=== PATIENT | female | born 1940 | race Hispanic/Latino ===

== ENCOUNTER 2016-06-13 15:07 | Emergency (ER) | payer OTHER ==
[~2016-06-13] VITALS: Ht 152.4 cm; Wt 81.8 kg
[~2016-06-13 15:07] MED LIST: AMLODIPINE2.5 MG PO; HYDROXYZINE HCL25 M1 PO; LISINOPRIL2.5 MG PO; LOVASTATIN10 MG PO; NAMENDA10 MG PO; PENICILLN250 MG/5 M PO; SERTRALINE25 MG PO; TRAZODONE50 MG PO
[2016-06-13] MEDS ORDERED: EXELON4.6 MG/24 (15:31)
[2016-06-13] MEDS ORDERED: AMOX/K CLAV875 M1 PO (15:32)
[2016-06-13] MEDS ORDERED: TESSALON PER100 MG PO (15:33)
[2016-06-13 15:55] LABS: URINE BILIRUBIN - DIPSTICK NEGATIVE (NEGATIVE); URINE BLOOD DIPSTICK NEGATIVE (NEGATIVE); URINE CLARITY CLEAR; URINE COLOR YELLOW; URINE GLUCOSE - DIPSTICK NEGATIVE (NEGATIVE); URINE KETONE NEGATIVE (NEGATIVE); URINE LEUK ESTERASE NEGATIVE (NEGATIVE); URINE NITRITE - DIPSTICK NEGATIVE (Negative); URINE PH 5.5 (4.5-8.0); URINE PROTEIN - DIPSTICK NEGATIVE (NEG-TRACE); URINE UROBILINOGEN - DIPSTICK 0.2 E.U./dL (0.2)
[2016-06-13 15:55] LABS: HEMATOCRIT 39.6 % (37.0-47.0); HEMOGLOBIN 12.9 g/dl (12.0-16.0); IMMATURE GRANULOCYTES 0.1 % (0.0-1.0); MEAN CELL VOLUME 90.4 fL CALC (80.0-100.0); MEAN CORPUSCULAR HGB 29.5 pG CALC (26.0-32.0); MEAN CORPUSCULAR HGB CONC 32.6 g/L CALC (32.0-36.0); NEUT# 4.16 thou/uL (2.00-7.15); RED BLOOD COUNT 4.38 mill/uL (4.20-5.60); RED CELL DISTRI WIDTH 13.2 % (11.5-15.5)
[2016-06-13 16:24] LABS: ALBUMIN 4.5 g/dL (3.2-5.0); ALKALINE PHOSPHATASE 59 u/l (38-126); ANION GAP 18 (6-22 (CALC)); BILIRUBIN, TOTAL 0.5 mg/dL (0.0-1.4); BUN 23 mg/dL (8-23); BUN/CREATININE RATIO 24 (12-20 (CALC)); CALCIUM 9.9 mg/dL (8.4-10.2); CARBON DIOXIDE 26 mmol/l (22-30); CHLORIDE 103 mmol/l (95-108); GFR 54 ML/MIN (>=60 (CALC)); GFR FOR AFR.AMER. > 60 ML/MIN (>=60 (CALC)); GLUCOSE 121 mg/dL (82-115); POTASSIUM 4.6 mmol/l (3.5-5.1); SGOT/AST 35 u/l (9-36); SGPT/ALT 47 u/l (11-66); SODIUM 143 mmol/l (137-146); TOTAL PROTEIN 8.1 g/dL (6.3-8.2)
[2016-06-13 16:36] LABS: MYOGLOBIN 25 ng/mL (0 - 62)
[2016-06-13 22:05] VITALS: BP 130/67
== END 2016-06-13 22:08 | disposition short-term general hospital (02) | DRG 948 ==
LOC: ED 15:07
PROVIDERS: Emergency Medicine
DX: R41.82 Altered mental status, unspecified (principal); I10 Essential (primary) hypertension; R27.0 Ataxia, unspecified; E78.00 Pure hypercholesterolemia, unspecified; F32.9 Major depressive disorder, single episode, unspecified

== ENCOUNTER 2017-06-27 09:12 | Emergency (ER) | payer MEDICARE, OTHER ==
[~2017-06-27] VITALS: Ht 152.4 cm; Wt 68.0 kg
[~2017-06-27 09:12] MED LIST changes: +AMOX/K CLAV875 M1 PO; +EXELON4.6 MG/24; +TESSALON PER100 MG PO
[2017-06-27 10:53] LABS: HEMATOCRIT 42.5 % (37.0-47.0); IMMATURE GRANULOCYTES 0.4 % (0.0-1.0); MEAN CELL VOLUME 89.9 fL CALC (80.0-100.0); MEAN CORPUSCULAR HGB 29.6 pG CALC (26.0-32.0); MEAN CORPUSCULAR HGB CONC 32.9 g/L CALC (32.0-36.0); NEUT# 5.25 thou/uL (2.00-7.15); RED BLOOD COUNT 4.73 mill/uL (4.20-5.60); RED CELL DISTRI WIDTH 12.9 % (11.5-15.5)
[2017-06-27 10:53] LABS: URINE BILIRUBIN - DIPSTICK NEGATIVE (NEGATIVE); URINE BLOOD DIPSTICK NEGATIVE (NEGATIVE); URINE COLOR YELLOW; URINE GLUCOSE - DIPSTICK NEGATIVE (NEGATIVE); URINE KETONE NEGATIVE (NEGATIVE); URINE LEUK ESTERASE NEGATIVE (NEGATIVE); URINE NITRITE - DIPSTICK NEGATIVE (Negative); URINE PROTEIN - DIPSTICK TRACE mg/dL (NEG-TRACE); URINE UROBILINOGEN - DIPSTICK 0.2 E.U./dL (0.2)
[2017-06-27 10:56] LABS: URINE CLARITY CLEAR
[2017-06-27 11:05] LABS: ALBUMIN 4.1 g/dL (3.2-5.0); ALKALINE PHOSPHATASE 69 u/l (38-126); ANION GAP 17 (6-22 (CALC)); BILIRUBIN, TOTAL 0.6 mg/dL (0.0-1.4); BUN 15 mg/dL (8-23); BUN/CREATININE RATIO 21 (12-20 (CALC)); CARBON DIOXIDE 29 mmol/l (22-30); CHLORIDE 101 mmol/l (95-108); CREATININE 0.7 mg/dL (0.5-1.0); GFR > 60 ML/MIN (>=60 (CALC)); GFR FOR AFR.AMER. > 60 ML/MIN (>=60 (CALC)); POTASSIUM 3.9 mmol/l (3.5-5.1); SGOT/AST 22 u/l (9-36); SGPT/ALT 38 u/l (11-66); SODIUM 143 mmol/l (137-146); TOTAL PROTEIN 7.4 g/dL (6.3-8.2)
[2017-06-27] MEDS ORDERED: ZOFRAN4 MG/TAB PO (11:10)
[2017-06-27 11:20] VITALS: BP 141/75
== END 2017-06-27 11:20 | disposition home or self-care (01) ==
LOC: ED 09:12
PROVIDERS: Emergency Medicine
DX: R11.2 Nausea with vomiting, unspecified (principal); I10 Essential (primary) hypertension; G30.9 Alzheimer's disease, unspecified; F02.80 Dementia in other diseases classified elsewhere, unspecified severity, without behavioral disturbance, psychotic disturbance, mood disturbance, and anxiety

== ENCOUNTER 2021-03-22 18:33 | Observation (INO) | payer MEDICARE ==
[~2021-03-22] VITALS: Ht 152.4 cm; Wt 37.0 kg
[~2021-03-22 18:33] MED LIST changes: -EXELON4.6 MG/24; +EXELON9.5 MG/24 TOP; +ZOFRAN4 MG/TAB PO
--- NOTE | 2021-03-22 18:39 | NUR ---
PATIENT RESTING ON EMS STRETCHER AWAITING ROOM ASSIGNMENT. MD NOTIFIED OF PATIENT STATUS
--- NOTE | 2021-03-22 19:00 | NUR ---
CARE ASSUMED, PT RESTING ON STRETCHER, NON VERBAL (NOT NEW PER FAMILY) PT REPOSITIONS SELF MINIMALLY FOR COMFORT, WEARING ADULT BRIEF FOR ASSUMED INCONTINENCE, PER FAMILY PT HAD COVID VACCINE YESTERDAY AND SINCE HAS BEEN WEAKER, WITH NO APPETITE AND POOR PO INTAKE BOTH LIQUID AND FOOD.
[2021-03-22 19:22] LABS: HEMATOCRIT 40.3 % (37.0-47.0); HEMOGLOBIN 13.2 g/dl (12.0-16.0); IMMATURE GRANULOCYTES 0.2 % (0.0-5.0); MEAN CORPUSCULAR HGB 31.3 pG CALC (26.0-32.0); MEAN CORPUSCULAR HGB CONC 32.8 g/dL CAL (32.0-36.0); NEUT# 7.91 thou/uL (2.00-7.15); RED BLOOD COUNT 4.22 mill/uL (4.20-5.60)
[2021-03-22 19:25] LABS: MEAN CELL VOLUME 95.5 fL CALC (80.0-100.0)
[2021-03-22 19:41] LABS: ALBUMIN 3.9 g/dL (3.2-5.0); ALKALINE PHOSPHATASE 93 u/l (38-126); ANION GAP 13 (6-22 (CALC)); BUN 17 mg/dL (8-23); BUN/CREATININE RATIO 25 (12-20 (CALC)); CARBON DIOXIDE 26 mmol/l (22-30); CHLORIDE 107 mmol/l (95-108); CREATININE 0.7 mg/dL (0.5-1.0); GFR > 60 ML/MIN (>=60 (CALC)); GFR FOR AFR.AMER. > 60 ML/MIN (>=60 (CALC)); POTASSIUM 4.1 mmol/l (3.5-5.1); SGOT/AST 24 u/l (9-36); SODIUM 141 mmol/l (137-146); TOTAL PROTEIN 7.4 g/dL (6.3-8.2)
[2021-03-22 19:42] LABS: BILIRUBIN, TOTAL 0.9 mg/dL (0.0-1.4)
--- NOTE | 2021-03-22 20:15 | NUR ---
PT RESTING WITH EYES CLOSED, NO NEW COMPLAINTS OFFERED, NO S/S OF DISTRESS OR DISCOMFORT. CALL MOSLEY WITHIN REACH
--- NOTE | 2021-03-22 21:31 | NUR ---
PT RESTING NO NEW COMPLAINTS, STILL IN NEED OF URINE SPECIMEN,
--- NOTE | 2021-03-22 22:15 | NUR ---
PT RESTING REMAINS AWARE OF NEED FOR URINE. NO S/S OF DISTRESS OR DISCOMFORT NOTED.
--- NOTE | 2021-03-22 23:33 | NUR ---
17F ROMERO INSERTED USING STERILE TECHNIQUE WITH IMMEDIATE RETURN OF CLEAR YELLOW URINE, SPECIMEN OBTAINED AND SECURITY DEVICE APPLIED TO LEFT UPPER THIGH.
[2021-03-22 23:49] LABS: URINE BILIRUBIN - DIPSTICK NEGATIVE (NEGATIVE); URINE BLOOD DIPSTICK NEGATIVE (NEGATIVE); URINE COLOR YELLOW; URINE GLUCOSE - DIPSTICK NEGATIVE (NEGATIVE); URINE KETONE NEGATIVE (NEGATIVE); URINE LEUK ESTERASE NEGATIVE (NEGATIVE); URINE PROTEIN - DIPSTICK NEGATIVE (NEG-TRACE); URINE SPECIFIC GRAVITY 1.025; URINE UROBILINOGEN - DIPSTICK 0.2 E.U./dL (0.2)
[2021-03-22 23:57] LABS: URINE NITRITE - DIPSTICK NEGATIVE (Negative)
[2021-03-23] MEDS ORDERED: LOSARTAN POTASS50 MG PO (00:22)
[2021-03-23] MEDS ORDERED: MEMANTINE HYDRO10 MG PO (00:23)
[2021-03-23] MEDS ORDERED: RISPERDAL PO (00:24)
--- NOTE | 2021-03-23 01:15 | NUR ---
PT RESTING FAMILY AWARE OF POTENTIAL ADMISSION, NO CHANGES IN ASSESSMENT RESTING WITH NO S/S OF DISTRESS OR DISCOMFORT.
--- NOTE | 2021-03-23 02:30 | NUR ---
PT CONTINUES WITH MILD HYPERTENSION PRN MEDICATED PRN
--- NOTE | 2021-03-23 03:30 | NUR ---
PT AND FAMILY NOTIFIED OF PLANNED ADMISSION.
--- NOTE | 2021-03-23 05:08 | NUR ---
REPORT CALLED TO HERIBERTO ON MED SURG.
[2021-03-23 05:25] VITALS: BP 180/88
--- NOTE | 2021-03-23 05:32 | NUR ---
PT TRANSFERRED TO MED SURG VIA BED.
--- NOTE | 2021-03-23 05:34 | NUR ---
HOME MEDICATIONS SENT WITH FAMILY MEMBER THAT WAS AT BEDSIDE
[2021-03-23 06:26] VITALS: BP 169/80
--- NOTE | 2021-03-23 06:45 | NUR ---
PATIENT ADMITTED FROM ER VIA STRETCHER WITH ER STAFF IN ATTENDANCE. MAX ASSIST TO TRANSFER TO BED. PATIENT IS NON-VERBAL AND DROWSY AT THIS TIME. 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 ROMERO CATH PATENT AND DRAINING YELLOW URINE-PLACED IN THE ER. IVF NS PATENT AND INFUSING VIA LEFT WRIST SITE. BP ON ADMISSION TO THE FLOOR WAS 180/88, HR-79. TELE MONITOR IN PLACE-INITAL READING WAS SB-55 PVC'S. BP AT THIS TIME IS 169/80, HR-64. O2 VIA NASAL CANNULA IN PLACE WITH O2 SATS 100% AT THIS TIME. BED ALARM IN PLACE FOR PATIENT SAFETY. WILL CONT TO MONITOR.
[2021-03-23 08:00] VITALS: BP 174/87
--- NOTE | 2021-03-23 08:00 | NUR ---
ASSESSMENT AND VITALS ALLOWED AT THIS TIME. LUNG SOUNDS ARE CLEAR UPPER/LOWER LOBES ANTERIOR. DIMINISHED RLL AND LLL POSTERIOR. HEART SOUNDS ARE REGULAR. TELE MONITOR IN PLACE. IV 20 LW INFUSING IVF PER EMAR. 20G RAC SL FLUSHED BOTH IV NO RESISTANCE. ROMERO CATHETERE IN PLACE, DRAINING VIA GRAVITY. SKIN INTACT. SHOWING YELLOW URINE. PT IS NON VERBAL. ABLE TO TOLERATE FOOD. CAN REPOSTION IN BED. SKIN WDI. FALL/SAFETY PRECAUTION IN PLACE. CALL LIGHT WITHIN REACH
[2021-03-23 10:08] VITALS: BP 174/87
--- NOTE | 2021-03-23 12:00 | NUR ---
PT WITH FAMILY MEMBER AT BEDSIDE. NO DISTRESS NOTED. SEEMS TO BE RELAXED MORE WITH THE DAUGHTER BEING PRESENT. CALL LIGHT WITHIN REACH
--- NOTE | 2021-03-23 14:33 | NUR ---
Discharge instructions given. Patient verbalizes understanding of same. Discharged in stable condition via Wheelchair to Home with staff. All belongings sent with pt. RAC 20G REMOVED CATHETER ALL INTACT LW 20G REMOVED CATHETER INTACT
--- NOTE | 2021-03-27 13:44 | NUR ---
Pneumonia post discharge follow up call completed. Spoke to patient\molina hooper. She states the patient is doing very well. No fever, chills, or SOB. Pt resumed taking regulaar medication. No additional meds were prescribed. No follow up appt. has been scheduled to date, but daughter states she will be sure to make appt. no needs or questions voiced at this time.
== END 2021-03-23 14:35 | disposition home or self-care (01) ==
LOC: ED 18:33 → ED-I 03-23 01:43 → ED 03-23 02:19 → MS2 03-23 02:20
PROVIDERS: Family Medicine; ADMIT Hospitalist; ATTEND Hospitalist
PROC: 0T9B70Z Drainage of Bladder with Drainage Device, Via Natural or Artificial Opening (ICD-10-PCS; principal; 2021-03-23)
DX: G93.40 Encephalopathy, unspecified (principal); J44.1 Chronic obstructive pulmonary disease with (acute) exacerbation; I10 Essential (primary) hypertension; R09.02 Hypoxemia; G10 Huntington's disease; F02.80 Dementia in other diseases classified elsewhere, unspecified severity, without behavioral disturbance, psychotic disturbance, mood disturbance, and anxiety; R91.8 Other nonspecific abnormal finding of lung field; Z20.822 Contact with and (suspected) exposure to COVID-19
CPT/HCPCS: G0378; Q9967

== ENCOUNTER 2021-03-30 02:23 | Inpatient (IN) | payer MEDICARE ==
[2021-03-30] VITALS (9 sets, daily range): BP systolic 157–189; BP diastolic 79–95
[~2021-03-30] VITALS: Ht 152.4 cm; Wt 33.0 kg
[~2021-03-30 02:23] MED LIST changes: +LOSARTAN POTASS50 MG PO; +MEMANTINE HYDRO10 MG PO; +RISPERDAL PO
--- NOTE | 2021-03-30 02:56 | NUR ---
PT TO ROOM 9, PT VERY LETHARGIC, UPON UNDRESSING PT FOUND 3 EXELON PATCHES THAT WERE REMOVED AWARE
[2021-03-30 02:59] LABS: HEMATOCRIT 41.1 % (37.0-47.0); HEMOGLOBIN 13.4 g/dl (12.0-16.0); IMMATURE GRANULOCYTES 0.2 % (0.0-5.0); MEAN CELL VOLUME 94.5 fL CALC (80.0-100.0); MEAN CORPUSCULAR HGB 30.8 pG CALC (26.0-32.0); MEAN CORPUSCULAR HGB CONC 32.6 g/dL CAL (32.0-36.0); NEUT# 9.78 thou/uL (2.00-7.15); RED BLOOD COUNT 4.35 mill/uL (4.20-5.60); RED CELL DISTRI WIDTH 13.4 % (11.5-15.5)
[2021-03-30 03:00] LABS: URINE BILIRUBIN - DIPSTICK NEGATIVE (NEGATIVE); URINE BLOOD DIPSTICK NEGATIVE (NEGATIVE); URINE COLOR YELLOW; URINE GLUCOSE - DIPSTICK NEGATIVE (NEGATIVE); URINE KETONE NEGATIVE (NEGATIVE); URINE LEUK ESTERASE TRACE (NEGATIVE); URINE PH 7.5 (4.5-8.0); URINE PROTEIN - DIPSTICK NEGATIVE (NEG-TRACE); URINE SPECIFIC GRAVITY 1.015
[2021-03-30 03:02] LABS: URINE NITRITE - DIPSTICK NEGATIVE (Negative)
[2021-03-30 03:14] LABS: ALBUMIN 3.9 g/dL (3.2-5.0); ALKALINE PHOSPHATASE 85 u/l (38-126); ANION GAP 13 (6-22 (CALC)); BILIRUBIN, TOTAL 0.8 mg/dL (0.0-1.4); BUN 18 mg/dL (8-23); BUN/CREATININE RATIO 24 (12-20 (CALC)); CARBON DIOXIDE 30 mmol/l (22-30); CHLORIDE 103 mmol/l (95-108); CREATININE 0.8 mg/dL (0.5-1.0); GFR > 60 ML/MIN (>=60 (CALC)); GFR FOR AFR.AMER. > 60 ML/MIN (>=60 (CALC)); POTASSIUM 4.2 mmol/l (3.5-5.1); SODIUM 142 mmol/l (137-146); TOTAL PROTEIN 7.6 g/dL (6.3-8.2)
--- NOTE | 2021-03-30 03:15 | NUR ---
Reassessment of patient completed. No distress noted.
[2021-03-30 03:18] LABS: ACT PARTIAL THROMBO TIME 21.6 SECONDS (20.0-32.5); INTERNATIONAL NORMALIZED RATIO 0.9 RATIO (0.7-1.3); PROTHROMBIN TIME 9.9 SECONDS (9.0-12.5)
[2021-03-30 03:19] LABS: SGOT/AST 53 u/l (9-36)
--- NOTE | 2021-03-30 03:19 | NUR ---
DEEP ORAL SUCTION FOR FROTHY SPUTUM, GAG INTACT
[2021-03-30 03:23] LABS: D-DIMER 0.88 mg/L (0.19-0.60)
[2021-03-30 03:26] LABS: MYOGLOBIN 30 ng/mL (0 - 62)
[2021-03-30 03:44] LABS: TSH, 3RD GENERATION 2.21 uIU/mL (0.47 - 4.68)
--- NOTE | 2021-03-30 04:06 | NUR ---
Reassessment of patient completed. No distress noted.
--- NOTE | 2021-03-30 04:59 | NUR ---
Reassessment of patient completed. No distress noted.
--- NOTE | 2021-03-30 06:07 | NUR ---
Reassessment of patient completed. No distress noted.
--- NOTE | 2021-03-30 07:08 | NUR ---
ASSUMED CARE BY THIS RN
--- NOTE | 2021-03-30 09:05 | NUR ---
REPORT CALLED TO DOMINGUEZ FOR PLACEMENT IN ICU 8
--- NOTE | 2021-03-30 09:15 | NUR ---
PT BROUGHT TO ROOM 8 FOR ADMISSION, PT IS NON VERBAL BASELINE AND BEDREST BASELINE AT HOME. LIVES WITH FAMILY. HAS BEEN LIKE THIS FOR MANY YEARS. DAUGHTER STATES EVERY ONCE IN AWHILE CAN GET HER TO SAY YES OR NO. POLISH SPEAKING ONLY WHEN SHE DOES. LUNGS DIMINISHED, O2 AT 100% ON 3 LITRE, PT HAVING A BOWEL MOVEMENT WITH TRANSFER FROM STRETCHER TO BED. WILL OPEN EYES BUT NOTHING ELSE. ROMERO HAS LIGHT YELLOW
--- NOTE | 2021-03-30 10:39 | NUR ---
pt resting quietly on bed, has not moved or turned over since arrival. was able to crush some of her meds and mix in applesauce and spoon feed , and have a text out to doctor for any possible iv meds instead, because pt is very difficult to get to swallow
--- NOTE | 2021-03-30 13:39 | NUR ---
PT RESTING QUIETLY ON BED, SLEEPING AT THIS TIME, VITAL SIGNS REMAIN STABLE. SPOKE WITH DAUGHTER SHE STATES THAT MOTHER HAS NOT BEEN EATING SINCE YESTERDAY, BUT THAT NORMALLY SHE WILL EAT ANY THING YOU PUT IN HER MOUTH. DOES NOT HAVE TO HAVE A PUREED DIET. PT DID NOT EAT ANY OF LUNCH I TRIED TO FEED HER.
--- NOTE | 2021-03-30 16:50 | NUR ---
SPOKE WITH PTS GRANDDAUGHTER WHO STATES THAT PT STARTED BECOMING WEAK AFTER GETTING THE COVID SHOT LAST WEEK. PT DOES NOT FEED HERSELF BUT WILL EAT ALMOST ANY FOOD WHEN SHE WANTS. DOES NOT SPEAK NIGERIEN OR UNDERSTAND ANY NIGERIEN, DOES NOT TURN ON HER OWN. GRANDDAUGHTER STATES EVERY ONCE IN AWHILE WILL SHAKE HEAD YES OR NO
--- NOTE | 2021-03-30 17:41 | NUR ---
PT REFUSED TO EAT ANY FOOD, PUT FOOD UP TO HER MOUTH AND SHE WOULD KEEP HER MOUTH CLOSED AND TURNED HER HEAD AWAY. WOULD TAKE SIPS OF WATER
--- NOTE | 2021-03-30 19:42 | NUR ---
EYES OPEN DOES NOT VERBALIZE NOR RESPOND TO COMMANDS. IV SITE PATENT. ROMERO TO BSD SEDIMENTED URINE. NAD.
[2021-03-31] VITALS: BP 150/77
--- NOTE | 2021-03-31 02:44 | NUR ---
NO SIGNIFICANT CHANGE NOTED. APPEARS COMFORTABLE.
[2021-03-31 04:00] VITALS: BP 173/86
--- NOTE | 2021-03-31 04:48 | NUR ---
LABS DRAWN BY PHOTOVOLTAIC SUBCONTRACTOR. APPEARS MORE AWAKE THIS AM. NODS HEAD APPROPRIATELY.
[2021-03-31 05:08] LABS: HEMATOCRIT 38.5 % (37.0-47.0); HEMOGLOBIN 12.4 g/dl (12.0-16.0); IMMATURE GRANULOCYTES 0.4 % (0.0-5.0); MEAN CELL VOLUME 95.3 fL CALC (80.0-100.0); MEAN CORPUSCULAR HGB 30.7 pG CALC (26.0-32.0); MEAN CORPUSCULAR HGB CONC 32.2 g/dL CAL (32.0-36.0); NEUT# 5.41 thou/uL (2.00-7.15); RED BLOOD COUNT 4.04 mill/uL (4.20-5.60); RED CELL DISTRI WIDTH 13.4 % (11.5-15.5)
[2021-03-31 05:29] LABS: ALBUMIN 3.4 g/dL (3.2-5.0); ALKALINE PHOSPHATASE 80 u/l (38-126); ANION GAP 12 (6-22 (CALC)); BILIRUBIN, TOTAL 0.5 mg/dL (0.0-1.4); BUN 16 mg/dL (8-23); BUN/CREATININE RATIO 22 (12-20 (CALC)); C-REACTIVE PROTEIN 6.7 mg/dL (0-0.9); CARBON DIOXIDE 27 mmol/l (22-30); CHLORIDE 108 mmol/l (95-108); CREATININE 0.7 mg/dL (0.5-1.0); GFR > 60 ML/MIN (>=60 (CALC)); GFR FOR AFR.AMER. > 60 ML/MIN (>=60 (CALC)); POTASSIUM 3.7 mmol/l (3.5-5.1); SGOT/AST 27 u/l (9-36); SODIUM 143 mmol/l (137-146); TOTAL PROTEIN 6.5 g/dL (6.3-8.2)
--- NOTE | 2021-03-31 05:50 | NUR ---
MORE AWAKE THIS AM. NAD. SAO2 99% ROOM AIR.
[2021-03-31 08:00] VITALS: BP 153/79
--- NOTE | 2021-03-31 08:22 | NUR ---
PT SEEN AWAKE OCCASIONALLY, DOES RESPOND TO SIMPLE QUESTIONS IN [place]. PT WAS ABLE TO EAT 5-6 BITES BREAKFAST THIS MORNING. PT CONTRACTED SHE RESTS IN THE BED, LEFT LEG UP INTO ABDOMEN.
--- NOTE | 2021-03-31 11:49 | NUR ---
PT REMAINS AT REST IN THE BED BEFORE, NO CHANGE IN STATUS. SEVERAL FAMILY MEMBERS CALL TO CHECK ON HER. NAD, NO COUGH WITH SWALLOWING.
[2021-03-31 12:00] VITALS: BP 149/81
--- NOTE | 2021-03-31 13:26 | NUR ---
PT ABLE TO EAT SOME LUNCH, FED BY THE SPOONFUL. NO ACUTE DISTRESS NOTED, PT RESTS IN THE BED.
[2021-03-31 16:00] VITALS: BP 127/62
--- NOTE | 2021-03-31 16:12 | NUR ---
PT CONTINUES WITHOUT CHANGE IN STATUS. SHE IS SEEN AT REST IN THE BED ON HER RIGHT SIDE. ROMERO IN PLACE. NO DISTRESS. FAMILY HAS BROUGHT IN HER MEDS, WILL SEND TO PHARMACY IN THE MORNING.
--- NOTE | 2021-03-31 19:00 | NUR ---
REPORT RECEIVED FROM Aniya MOSES RN, CARE OF PT ASSUMED AT THIS TIME.
--- NOTE | 2021-03-31 20:06 | NUR ---
CALL RECEIVED FROM PT'S GRANDSON FOR UPDATES. UPDATES PROVIDED. QUESTIONS ANSWERED. CALLER REQUESTS "PLEASE DON'T FORGET TO FEED HER, SHE CAN'T EAT BY HERSLEF.". CALLER ASSURED PT IS FED BY STAFF.
--- NOTE | 2021-03-31 20:30 | NUR ---
PT SLEEPING. WAKES EASILY. DOES NOT RESPOND TO VERBAL COMMANDS. DOES NOT SPEAK. PICKS HEAD UP TO EAT AND DRINK WHEN OFFERED. PT TOLERATED PO MED WHOLE IN APPLESAUCE. PT ATE APPROX 50% OF APPLE SAUCE.
--- NOTE | 2021-04-01 05:18 | NUR ---
Tonya BURROWS CPT IN ROOM COLLECTING AM LABS.
[2021-04-01 05:57] LABS: HEMATOCRIT 35.5 % (37.0-47.0); HEMOGLOBIN 11.4 g/dl (12.0-16.0); MEAN CELL VOLUME 96.7 fL CALC (80.0-100.0); MEAN CORPUSCULAR HGB 31.1 pG CALC (26.0-32.0); MEAN CORPUSCULAR HGB CONC 32.1 g/dL CAL (32.0-36.0); RED BLOOD COUNT 3.67 mill/uL (4.20-5.60); RED CELL DISTRI WIDTH 13.3 % (11.5-15.5)
[2021-04-01 06:21] LABS: ALBUMIN 3.2 g/dL (3.2-5.0); ALKALINE PHOSPHATASE 69 u/l (38-126); ANION GAP 11 (6-22 (CALC)); BILIRUBIN, TOTAL 0.7 mg/dL (0.0-1.4); BUN 19 mg/dL (8-23); BUN/CREATININE RATIO 26 (12-20 (CALC)); CARBON DIOXIDE 26 mmol/l (22-30); CHLORIDE 113 mmol/l (95-108); CREATININE 0.7 mg/dL (0.5-1.0); GFR > 60 ML/MIN (>=60 (CALC)); GFR FOR AFR.AMER. > 60 ML/MIN (>=60 (CALC)); POTASSIUM 3.3 mmol/l (3.5-5.1); SGOT/AST 22 u/l (9-36); SODIUM 147 mmol/l (137-146); TOTAL PROTEIN 6.2 g/dL (6.3-8.2)
[2021-04-01 07:41] VITALS: BP 176/83
--- NOTE | 2021-04-01 07:41 | NUR ---
Patient is screened for PT and OT as well as ST and may benefit from all 3 consultations if medical agrees
--- NOTE | 2021-04-01 09:00 | NUR ---
PT SEEN AT REST IN THE BED, ABLE TO BE FED BREAKFAST UPON ARRIVAL. PT ABLE TO ANSWER SIMPLE QUESTIONS IN [place].
[2021-04-01] MEDS ORDERED: DEXAMETHASON6 MG PO (09:29)
[2021-04-01] MEDS ORDERED: ZITHROMAX250 MG PO (09:29)
--- NOTE | 2021-04-01 10:51 | NUR ---
PRELIMINARY BLOOD CULTURES SHOW GRAM POSITIVE COCCI IN [address] ADAMS. NO NEW ORDERS RECEIVED. WILL F/U WITH FINALS.
[2021-04-01 11:56] VITALS: BP 136/64
--- NOTE | 2021-04-01 14:22 | NUR ---
PT HAS BEEN DISCHARGED TO HOME. DAUGHTER MALIK HAS ARRIVED WITH CLOTHES. PT WAS DRESSED, PLACED IN WHEELCHAIR, ASSISTED INTO VEHICLE. MALIK WAS GIVEN THE MEDS THAT PHARMACY WAS HOLDING. MALIK VERBALIZED UNDERSTANDING OF DC INSTRUCTIONS. ROMERO AND IV WERE REMOVED PRIOR WITHOUT ISSUE.
== END 2021-04-01 14:10 | DRG 177 ==
LOC: ED 02:23 → ED-I 07:00 → ED 07:10 → ICU 07:11
PROVIDERS: Family Medicine; ADMIT Internal Medicine; ATTEND Internal Medicine
PROC: 0T9B70Z Drainage of Bladder with Drainage Device, Via Natural or Artificial Opening (ICD-10-PCS; principal; 2021-03-30)
PROC: XW033E5 Introduction of Remdesivir Anti-infective into Peripheral Vein, Percutaneous Approach, New Technology Group 5 (ICD-10-PCS; 2021-03-30)
DX: U07.1 COVID-19 (principal); J12.82 Pneumonia due to coronavirus disease 2019; J96.01 Acute respiratory failure with hypoxia; G10 Huntington's disease; R64 Cachexia; Z68.1 Body mass index [BMI] 19.9 or less, adult; F02.80 Dementia in other diseases classified elsewhere, unspecified severity, without behavioral disturbance, psychotic disturbance, mood disturbance, and anxiety; I10 Essential (primary) hypertension; Z74.01 Bed confinement status
CPT/HCPCS: J1650; Q9967

== ENCOUNTER 2022-02-19 13:30 | Emergency (ER) | payer MEDICARE ==
[2022-02-19] VITALS (12 sets, daily range): BP systolic 110–230; BP diastolic 56–116
[~2022-02-19] VITALS: Ht 152.4 cm; Wt 45.0 kg
[~2022-02-19 13:30] MED LIST changes: +DEXAMETHASON6 MG PO; +ZITHROMAX250 MG PO
[2022-02-19 17:01] LABS: BASO% 0.4 % (0-3); EOS% 0.7 % (0-8); HEMATOCRIT 36.2 % (37.0-47.0); LYMPH% 19.3 % (15-41); MEAN CELL VOLUME 98.4 fL CALC (80.0-100.0); MEAN CORPUSCULAR HGB 32.6 pG CALC (26.0-32.0); MEAN CORPUSCULAR HGB CONC 33.1 g/dL CAL (32.0-36.0); MONO% 6.6 % (2-13); NEUT# 4.08 thou/uL (2.00-7.15); RED BLOOD COUNT 3.68 mill/uL (4.20-5.60); RED CELL DISTRI WIDTH 12.9 % (11.5-15.5)
[2022-02-19 17:15] LABS: ALBUMIN 3.7 g/dL (3.2-5.0); ALKALINE PHOSPHATASE 63 u/l (38-126); BUN 19 mg/dL (8-23); BUN/CREATININE RATIO 28 (12-20 (CALC)); CARBON DIOXIDE 30 mmol/l (22-30); CHLORIDE 107 mmol/l (95-108); CREATININE 0.7 mg/dL (0.5-1.0); GFR FOR AFR.AMER. > 60 ML/MIN (>=60 (CALC)); GFR OTHER RACES > 60 ML/MIN (>=60 (CALC)); LIPASE 63 u/l (23-300); SGOT/AST 32 u/l (9-36); SODIUM 141 mmol/l (137-146); TOTAL PROTEIN 6.4 g/dL (6.3-8.2)
[2022-02-19 17:16] LABS: ANION GAP 9 (6-22 (CALC)); BILIRUBIN, TOTAL 0.3 mg/dL (0.0-1.4); POTASSIUM 4.5 mmol/l (3.5-5.1)
[2022-02-19 18:22] LABS: URINE BILIRUBIN - DIPSTICK NEGATIVE (NEGATIVE); URINE BLOOD DIPSTICK MODERATE (NEGATIVE); URINE COLOR YELLOW; URINE GLUCOSE - DIPSTICK NEGATIVE (NEGATIVE); URINE KETONE NEGATIVE (NEGATIVE); URINE LEUK ESTERASE NEGATIVE (NEGATIVE); URINE PROTEIN - DIPSTICK NEGATIVE (NEG-TRACE); URINE UROBILINOGEN - DIPSTICK 0.2 E.U./dL (0.2)
[2022-02-19 18:23] LABS: URINE NITRITE - DIPSTICK NEGATIVE (Negative)
[2022-02-19 18:38] LABS: URINE AMORPH SEDIMENT FEW hpf (NONE-FEW); URINE SQUAMOUS EPITHELIAL CELL FEW EPI/hpf (0-FEW); URINE WBC 0-2 WBC/hpf (0-5)
== END 2022-02-19 20:36 | disposition home or self-care (01) ==
LOC: ED 13:30
PROVIDERS: Family Medicine
DX: R53.1 Weakness (principal); G10 Huntington's disease; G30.9 Alzheimer's disease, unspecified; F02.80 Dementia in other diseases classified elsewhere, unspecified severity, without behavioral disturbance, psychotic disturbance, mood disturbance, and anxiety; I10 Essential (primary) hypertension

== ENCOUNTER 2023-09-25 02:34 | Emergency (ER) | payer MEDICARE, MEDICAID ==
[~2023-09-25] VITALS: Ht 152.4 cm; Wt 40.0 kg
[2023-09-25] VITALS (12 sets, daily range): BP systolic 98–202; BP diastolic 51–117
[~2023-09-25 02:34] MED LIST changes: +AUSTEDO9 MG PO
[2023-09-25] MEDS ORDERED: SODIUM CHLORIDE 0.9% 1,000 ML IV ONE (03:05)
[2023-09-25] MEDS ORDERED: LABETALOL HCL 20 MG/ 4 ML CARTRG IV ONE (03:05)
[2023-09-25 03:50] LABS: BASO% 0.1 % (0-3); EOS% 0.4 % (0-8); HEMATOCRIT 39.9 % (37.0-47.0); HEMOGLOBIN 12.8 g/dl (12.0-16.0); IMMATURE GRANULOCYTES 0.7 % (0.0-5.0); LYMPH% 10.2 % (15-41); MEAN CORPUSCULAR HGB 31.4 pG CALC (26.0-32.0); MEAN CORPUSCULAR HGB CONC 32.1 g/dL CAL (32.0-36.0); MONO% 2.7 % (2-13); NEUT# 6.58 thou/uL (2.00-7.15); NEUT% 85.9 % (42-76); RED BLOOD COUNT 4.07 mill/uL (4.20-5.60)
[2023-09-25 04:02] LABS: ALBUMIN 3.6 g/dL (3.2-5.0); ALKALINE PHOSPHATASE 81 u/l (38-126); ANION GAP 10 (6-22 (CALC)); BUN 12 mg/dL (8-23); BUN/CREATININE RATIO 20 (12-20 (CALC)); CARBON DIOXIDE 22 mmol/l (22-30); CHLORIDE 111 mmol/l (95-108); CREATININE 0.6 mg/dL (0.5-1.0); ESTIMATED GFR 90 ML/MIN (>=90 (CALC)); POTASSIUM 3.9 mmol/l (3.5-5.1); SGOT/AST 21 u/l (9-36); SODIUM 140 mmol/l (137-146); TOTAL PROTEIN 6.6 g/dL (6.3-8.2)
[2023-09-25 04:07] LABS: BILIRUBIN, TOTAL 0.6 mg/dL (0.02-1.3)
[2023-09-25] MEDS ORDERED: AUGMENTINES600 PO (05:18)
== END 2023-09-25 05:52 | disposition home or self-care (01) ==
LOC: ED 02:34
PROVIDERS: Family Medicine
DX: G10 Huntington's disease (principal); F02.80 Dementia in other diseases classified elsewhere, unspecified severity, without behavioral disturbance, psychotic disturbance, mood disturbance, and anxiety; I10 Essential (primary) hypertension

== ENCOUNTER 2024-03-17 10:39 | Emergency (ER) | payer MEDICARE, MEDICAID ==
[2024-03-17] VITALS (19 sets, daily range): BP systolic 130–205; BP diastolic 64–119
[~2024-03-17] VITALS: Ht 152.4 cm; Wt 28.0 kg
[~2024-03-17 10:39] MED LIST changes: +AUGMENTINES600 PO
[2024-03-17] MEDS ORDERED: SODIUM CHLORIDE 0.9% 1,000 ML IV ONE (11:45)
[2024-03-17 12:19] LABS: BASO% 0.1 % (0-3); HEMATOCRIT 37.8 % (37.0-47.0); HEMOGLOBIN 12.1 g/dl (12.0-16.0); IMMATURE GRANULOCYTES 0.1 % (0.0-5.0); LYMPH% 2.7 % (15-41); MEAN CELL VOLUME 101.9 fL CALC (80.0-100.0); MEAN CORPUSCULAR HGB 32.6 pG CALC (26.0-32.0); MONO% 5.4 % (2-13); NEUT# 7.06 thou/uL (2.00-7.15); NEUT% 91.7 % (42-76); RED BLOOD COUNT 3.71 mill/uL (4.20-5.60)
[2024-03-17 12:38] LABS: ALBUMIN 3.7 g/dL (3.2-5.0); BILIRUBIN, TOTAL 0.8 mg/dL (0.02-1.3); CREATININE 0.6 mg/dL (0.5-1.0); POTASSIUM 4.4 mmol/l (3.5-5.1); TOTAL PROTEIN 6.5 g/dL (6.3-8.2)
[2024-03-17] MEDS ORDERED: AZITHROMYCIN 500 MG in SODIUM CHLORIDE 0.9% 250 ML IV ONE (12:45)
[2024-03-17] MEDS ORDERED: AMPICILLIN & SULBACTAM SODIUM 3 GM in SODIUM CHLORIDE 0.9% 100 ML IV ONE (12:45)
[2024-03-17 13:18] LABS: URINE BILIRUBIN - DIPSTICK Negative (NEGATIVE); URINE BLOOD DIPSTICK Negative (NEGATIVE); URINE GLUCOSE - DIPSTICK 500 mg/dL (NEGATIVE); URINE KETONE Negative (NEGATIVE); URINE LEUK ESTERASE Negative (NEGATIVE); URINE NITRITE - DIPSTICK Negative (Negative); URINE PH 6.5 (4.5-8.0); URINE PROTEIN - DIPSTICK Negative (NEG-TRACE)
[2024-03-17] MEDS ORDERED: AMOX/K CLAV875 M1 PO (13:19)
[2024-03-17] MEDS ORDERED: ZITHROMAX Z-PA250 MG PO (13:19)
[2024-03-17 13:31] LABS: URINE COLOR Yellow
== END 2024-03-17 14:49 | disposition home or self-care (01) ==
LOC: ED 10:39
PROVIDERS: Family Medicine
DX: J18.9 Pneumonia, unspecified organism (principal); R64 Cachexia; G10 Huntington's disease; I10 Essential (primary) hypertension; G30.9 Alzheimer's disease, unspecified; F02.80 Dementia in other diseases classified elsewhere, unspecified severity, without behavioral disturbance, psychotic disturbance, mood disturbance, and anxiety; Z74.01 Bed confinement status; Z20.822 Contact with and (suspected) exposure to COVID-19
CPT/HCPCS: J0456